=== PATIENT | female | born 1965 | race Caucasian/White ===

== ENCOUNTER → 2022-12-27 08:39 | Outpatient (CLI) | payer OTHER, SELFPAY ==
--- NOTE | 2022-12-27 | DI.MRI.S_ITS ---
BREAST MRI OF BOTH BREASTS: 12/27/2022 CLINICAL: Increased risk of Malignant neoplasm of breast. TECHNIQUE: The patient was placed prone in a dedicated breast imaging coil. Precontrast axial STIR and 3D FLASH without fat saturation sequences were obtained. Both before and after bolus injection of contrast, sequential 1-minute axial 3D FLASH with fat saturation sequences for 3 time points, with subtraction images and maximum intensity projections (MIP's) generated. Delayed sagittal FLASH images with fat saturation were also obtained. Computer-aided detection, including computer algorithm analysis of MRI image data for lesion detection and characterization, pharmacokinetic analysis, with further physician review for interpretation, was performed. COMPARISON: 12/13/2022 mammogram, 12/12/2021 mammogram, and 11/30/2020 mammogram - [facility]. Image quality: Excellent. There is mild background parenchymal enhancement. There is heterogeneously dense fibroglandular tissue in the bilateral breast. Right breast: No suspicious mass, non-mass enhancement, or architectural distortion. No skin or nipple abnormalities. No axillary or internal mammary chain adenopathy. Left breast: No suspicious mass, non-mass enhancement, or architectural distortion. No skin or nipple abnormalities. No axillary or internal mammary chain adenopathy. Miscellaneous: Bilateral saline breast implants are in place and appear intact. Visualized portions of the upper abdomen and chest appear unremarkable. IMPRESSION: BENIGN 1. Right breast without MRI evidence for malignancy. 2. Left breast without MRI evidence for malignancy. 3. Intact appearance of bilateral saline breast implants. Recommend continued annual screening mammograms and consideration for adjunct screening breast MRI. COMMENT: The imaging literature indicates that a negative contrast breast MRI examination has a high sensitivity and a moderate specificity for detecting and excluding invasive carcinomas to a detection threshold of 3-5 mm; nonetheless, appropriate clinical and mammographic follow-up are recommended. MRI is not sensitive for detecting DCIS (ductal carcinoma in situ) and may not detect large invasive neoplasms that show only minimal enhancement such as mucinous carcinoma. If there are suspicious calcifications or clinically worrisome palpable masses, then biopsy should still be considered. Invasive neoplasms can be hidden by co-existent and benign enhancement caused by mastitis, hormone therapy effects, radiation therapy, , and recent biopsy or surgery. False positive examinations can occur in a number of circumstances, including breasts that have recently been subject to invasive procedures and those that contain atypical ductal hyperplasia, hormonally stimulated glandular tissue, fat necrosis, or radial scars. A 1 year screening mammogram is recommended. Future imaging is recommended as follows: 12/14/2023 screening mammogram. This exam was interpreted at Station ID: [id number]. Electronically Signed By: Micha Weaver M.D. aty/:12/27/2022 18:15:12 ACR BI-RADS Category 2: Benign Finding(s) 3342F
== END ==
PROVIDERS: PCP Nurse Practitioner; Referring Provider Nurse Practitioner; Visit Provider Nurse Practitioner
DX: Z91.89 Other specified personal risk factors, not elsewhere classified (principal); Z12.39 Encounter for other screening for malignant neoplasm of breast; Z98.82 Breast implant status
CPT/HCPCS: 77049